=== PATIENT | female | born 1985 | race Two or more races ===

== ENCOUNTER 2019-11-19 19:24 | Emergency (ER) | payer OTHER ==
--- NOTE | 2019-11-19 20:27 | ER Document Report ---
ED Medical Screen (RME) - General Chief Complaint: Vaginal Pain Stated Complaint: LOW ABDOMINAL PAIN Time Seen by Provider: 11/19/19 20:21 Mode of Arrival: Ambulatory Information source: Patient Notes: 32-year-old female presents to ED for complaint of vaginal and pelvic pain. She states she had a tele-visit for a bacterial vaginal infection a couple weeks ago. She is states that the tele-doctor ordered her some Flagyl. He stated that she should have a follow-up visit after the menstrual cycle was over. She states after the menstrual cycle was over she had another visit he ordered her some more Flagyl. She states she is continuing to have symptoms and she is now come to the emergency room for the continued pain to the pelvis and vaginal area. I have greeted and performed a rapid initial assessment of this patient. A comprehensive ED assessment and evaluation of the patient, analysis of test results and completion of medical decision making process will be conducted by an additional ED providers. - Related Data Allergies/Adverse Reactions: No Known Allergies Allergy (Verified 11/19/19 20:15) Physical Exam - Vital signs Vitals: Temp Pulse Resp BP Pulse Ox 99.4 F 111 H 18 143/77 H 99 11/19/19 19:27 11/19/19 19:27 11/19/19 19:27 11/19/19 19:27 11/19/19 19:27 Course - Vital Signs Vital signs: Temp Pulse Resp BP Pulse Ox 99.4 F 111 H 18 143/77 H 99 11/19/19 19:27 11/19/19 19:27 11/19/19 19:27 11/19/19 19:27 11/19/19 19:27
[2019-11-19 20:35] LABS: APPEARANCE,URINE CLEAR; BILIRUBIN,URINE NEGATIVE (NEGATIVE); COLOR,URINE YELLOW; GLUCOSE, URINE NEGATIVE (NEGATIVE); KETONES,URINE NEGATIVE (NEGATIVE); LEUKOCYTE ESTERASE,URINE NEGATIVE (NEGATIVE); NITRITE,URINE NEGATIVE (NEGATIVE); PROTEIN,URINE NEGATIVE (NEGATIVE); URINE SPECIFIC GRAVITY 1.006; UROBILINOGEN,URINE NEGATIVE mg/dL (<2.0)
--- NOTE | 2019-11-19 21:11 | RADIOLOGY REPORT (SQ) ---
US PELVIS HISTORY: Pelvic pain. COMPARISON: None. TECHNIQUE: Grayscale, color Doppler, and spectral Doppler ultrasound images of the pelvis were obtained. FINDINGS: The uterus is anteverted and measures 7.7 x 3.8 x 5.3 cm. The endometrium is 1.1 cm in thickness. The cervix is 2 cm in length. No intrauterine fibroids are seen. The right ovary measures 3.3 x 2.8 cm and contains normal color Doppler blood flow. The left ovary was not seen due to overlying bowel gas. No pelvic free fluid is evident. IMPRESSION: No acute pelvic findings.
[2019-11-19 21:22] LABS: ABSOLUTE EOSINOPHILS # (AUTO) 0.1 10^3/uL (0.0-0.6); ABSOLUTE LYMPHOCYTES (AUTO) 1.8 10^3/uL (0.5-4.7); ABSOLUTE MONOCYTES (AUTO) 0.6 10^3/uL (0.1-1.4); ABSOLUTE NEUT (AUTO) 6.7 10^3/uL (1.7-8.2); BASOPHILS % (AUTO) 0.3 % (0-2); EOSINOPHILS % (AUTO) 0.9 % (0-6); HEMATOCRIT 37.5 % (36.0-47.0); HEMOGLOBIN 13.3 g/dL (12.0-15.5); LYMPHOCYTES % (AUTO) 19.7 % (13-45); MEAN CORPUSCULAR HEMOGLOBIN 32.3 pg (27.0-33.4); MEAN CORPUSCULAR HGB CONC 35.5 g/dL (32.0-36.0); MEAN CORPUSCULAR VOLUME 91 fl (80-97); MONOCYTES % (AUTO) 6.6 % (3-13); PLATELET COUNT 231 10^3/uL (150-450); RED BLOOD COUNT 4.12 10^6/uL (3.72-5.28); RED CELL DISTRIBUTION WIDTH 12.4 % (11.5-14.0); SEGMENTED NEUTROPHILS % (AUTO) 72.5 % (42-78); TOTAL CELLS COUNTED % (AUTO) 100 %; WHITE BLOOD COUNT 9.2 10^3/uL (4.0-10.5)
[2019-11-19 21:41] LABS: ALBUMIN 4.4 g/dL (3.5-5.0); ALKALINE PHOSPHATASE 48 U/L (38-126); ANION GAP 8 (5-19); ASPARTATE AMINO TRANSFERASE 20 U/L (14-36); BILIRUBIN,DIRECT 0.2 mg/dL (0.0-0.4); BILIRUBIN,TOTAL 0.3 mg/dL (0.2-1.3); BLOOD UREA NITROGEN 11 mg/dL (7-20); CALCIUM 9.4 mg/dL (8.4-10.2); CARBON DIOXIDE 30 mmol/L (22-30); CHLORIDE 101 mmol/L (98-107); GLUCOSE 98 mg/dL (75-110); POTASSIUM 3.9 mmol/L (3.6-5.0); TOTAL PROTEIN 7.2 g/dL (6.3-8.2)
--- NOTE | 2019-11-19 21:59 | ER Document Report ---
ED GI/ - General Chief Complaint: Vaginal Pain Stated Complaint: LOW ABDOMINAL PAIN Time Seen by Provider: 11/19/19 20:21 Mode of Arrival: Ambulatory Notes: 11/19/19 19:58 - ED Nursing Note by NEVIN MCKEON Acchuan Num: [id number] : 1985 Patient Age: 33 ten days of vaginal pain and burning. pt has been on 2 courses of flagyl . pt states she still has symptoms. pt denies discharge or itching. Initialized on 11/19/19 19:58 - END OF NOTE - Related Data Allergies/Adverse Reactions: No Known Allergies Allergy (Verified 11/19/19 20:15) Past Medical History - General Information source: Patient - Social History Smoking Status: Never Smoker Physical Exam - Vital signs Vitals: Temp Pulse Resp BP Pulse Ox 99.4 F 111 H 18 143/77 H 99 11/19/19 19:27 11/19/19 19:27 11/19/19 19:27 11/19/19 19:27 11/19/19 19:27 Course - Vital Signs Vital signs: Temp Pulse Resp BP Pulse Ox 99.4 F 111 H 18 143/77 H 99 11/19/19 19:27 11/19/19 19:27 11/19/19 19:27 11/19/19 19:27 11/19/19 19:27 - Laboratory Result Diagrams: 11/19/19 21:00 11/19/19 21:00
--- NOTE | 2019-11-19 22:12 | ER Document Report ---
ED GI/ - General Chief Complaint: Vaginal Pain Stated Complaint: LOW ABDOMINAL PAIN Time Seen by Provider: 11/19/19 20:21 Mode of Arrival: Ambulatory - [facility] Notes: 11/19/19 22:27 33-year-old female presents with vaginal pain. Patient states that about 10 days ago she had symptoms suggestive of BV, she had a telemedicine visit and was prescribed Flagyl. She was additionally on her menstrual cycle at that time. After her menstrual cycle was finished, she went into the doctor and had a swab done which showed "infection", she was then started on a second course of Flagyl. She states that she does not think the Flagyl is working, she currently is taking pills. She states that the odor has not changed. She has a little bit of discomfort in her pelvic area. She also states that she feels a burning on the outside of her vagina. She denies discharge or bleeding. - Related Data Allergies/Adverse Reactions: No Known Allergies Allergy (Verified 11/19/19 20:15) Past Medical History - General Information source: Patient - Social History Smoking Status: Never Smoker Family History: Reviewed & Not Pertinent Review of Systems - Review of Systems Constitutional: denies: Fever EENT: No symptoms reported Cardiovascular: No symptoms reported Respiratory: No symptoms reported Gastrointestinal: denies: Abdominal pain, Diarrhea, Nausea, Vomiting Genitourinary: Burning Female Genitourinary: Vaginal odor Musculoskeletal: No symptoms reported Skin: No symptoms reported Neurological/Psychological: No symptoms reported Physical Exam - Vital signs Vitals: Temp Pulse Resp BP Pulse Ox 99.4 F 111 H 18 143/77 H 99 11/19/19 19:27 11/19/19 19:27 11/19/19 19:27 11/19/19 19:27 11/19/19 19:27 - General General appearance: Appears well In distress: None - HEENT Head: Normocephalic, Atraumatic Extraocular movements intact: Yes Pupils: PERRL - Respiratory Breath sounds: Normal - Cardiovascular Rhythm: Regular - Abdominal Tenderness: Nontender - Genitourinary External exam: No: Lesions Speculum exam: Vaginal discharge, Other - No cervical irritation Vaginal bleeding: Mild Bimanuel exam: No: Cervical motion tender, Bladder/Urethral tender, Adnexal tenderness Notes: Nursing real estate salesperson present - Extremities General upper extremity: Normal ROM General lower extremity: Normal ROM - Neurological Neuro grossly intact: Yes Cognition: Normal Orientation: AAOx4 - Psychological Associated symptoms: Normal affect - Skin Skin Temperature: Warm Course - Re-evaluation Re-evalutation: 11/19/19 22:29 33-year-old female here with vaginal odor and discomfort. Reportedly was diagnosed with BV via telemedicine visit, she is now on her second course of Flagyl without improvement of her symptoms. Additionally complains of some burning to her urethra per her description. Will perform pelvic exam. She is well-appearing, nontoxic, no abdominal tenderness found. Via the triage process she had a pelvic ultrasound done, which is negative for acute finding. 11/19/19 22:44 Pelvic exam performed, there is some vaginal discharge. No CMT or adnexal tenderness. Patient wants to wait in the emergency department for swabs. 11/20/19 01:08 Urine without evidence of UTI. negative. No trichomonas or yeast seen. She does have 3+ bacteria and white, feel this is consistent with BV. Negative gonorrhea and chlamydia. 11/20/19 01:14 Patient was updated on results. She was advised to discontinue use of oral Flagyl and instead begin use of metronidazole gel. She already has a prescription for this. She verbalized understanding of how to use it. Return precautions given, stable at time of discharge. - Vital Signs Vital signs: Temp Pulse Resp BP Pulse Ox 99.4 F 111 H 18 143/77 H 99 11/19/19 19:27 11/19/19 19:27 11/19/19 19:27 11/19/19 19:27 11/19/19 19:27 - Laboratory Result Diagrams: 11/19/19 21:00 11/19/19 21:00 Discharge - Discharge Clinical Impression: Vaginal discharge Condition: Stable Disposition: HOME, SELF-CARE Additional Instructions: Discontinue use of the pill form of Flagyl. Please begin use of the metronidazole gel as previously prescribed by your doctor. Return to the emergency department for any concerning worsening symptoms.
[2019-11-19 22:59] LABS: BACTERIA (WET MOUNT) 3+ BACTERIA SEEN; RBCS (WET MOUNT) NO RBCS SEEN; T.VAGINALIS (WET MOUNT) NO TRICHOMONAS SEEN; WBCS (WET MOUNT) 4+ WBCS SEEN; YEAST (WET MOUNT) NO YEAST SEEN
[2019-11-20 00:26] LABS: CHLAM PCR NOT DETECTED (NOT DETECT)
[2019-11-20 02:03] VITALS: BP 116/82
== END 2019-11-20 01:29 | disposition home or self-care (01) ==
LOC: ER 19:24
DX: N89.8 Other specified noninflammatory disorders of vagina (principal); R10.2 Pelvic and perineal pain; R10.30 Lower abdominal pain, unspecified
CPT/HCPCS: 36415; 76856; 80053; 81001; 81025; 85025; 87070; 87205; 87210; 87491; 87591; 99284

== ENCOUNTER 2020-03-31 21:10 | Emergency (ER) | payer OTHER ==
[2020-03-31] MEDS ORDERED: LORAZEPAM 1 MG TABLET PO ONE (21:26)
--- NOTE | 2020-03-31 21:27 | ER Document Report ---
ED Medical Screen (RME) - General Chief Complaint: Arrhythmia Stated Complaint: CHEST PAIN,ANXIETY Time Seen by Provider: 03/31/20 21:25 Notes: HPI: 34-year-old female who tested Covid positive presenting for chest pain and a sensation of heaviness over the anterior chest all day today with some shortness of breath. No pleuritic pain. Patient feels like her heartbeat is very quick today. Patient got the Covid test on because her had tested positive for Covid. No definite fevers. PHYSICAL EXAMINATION: Patient is mildly tachycardic. She does not become dyspneic with speaking. I have greeted and performed a rapid initial assessment of this patient. A comprehensive ED assessment and evaluation of the patient, analysis of test results and completion of medical decision making process will be conducted by an additional ED providers. Please note that clinical decision making for this patient was made during the 2019 pandemic of novel coronavirus which caused a significant strain on the healthcare system including at this particular facility. Criteria for admission discharge and level of care decisions as well as treatment decisions have necessarily changed - Related Data Allergies/Adverse Reactions: No Known Allergies Allergy (Verified 03/31/20 21:22) Physical Exam - Vital signs Vitals: Temp Pulse Resp BP Pulse Ox 98.3 F 119 H 18 140/75 H 98 03/31/20 21:13 03/31/20 21:13 03/31/20 21:13 03/31/20 21:13 03/31/20 21:13 Course - Vital Signs Vital signs: Temp Pulse Resp BP Pulse Ox 98.3 F 119 H 18 140/75 H 98 03/31/20 21:13 03/31/20 21:13 03/31/20 21:13 03/31/20 21:13 03/31/20 21:13
--- NOTE | 2020-03-31 22:12 | RADIOLOGY REPORT (SQ) ---
EXAM DESCRIPTION: XR CHEST 1 VIEW COMPLETED DATE/TME: 03/31/2020 21:48 CLINICAL HISTORY: 34 years, Female, chest pain COMPARISON: None. NUMBER OF VIEWS: 1 TECHNIQUE: Single frontal view of the chest was obtained at 9:49 PM. LIMITATIONS: None. FINDINGS: The heart size is normal. Lungs are clear. There is no evidence of pleural effusion or pneumothorax. No definite bony abnormality. IMPRESSION: No acute abnormality as above. copyright 2010 [employer]- All Rights Reserved
--- NOTE | 2020-03-31 22:25 | ER Document Report ---
Doctor's Note Notes: 03/31/20 22:24 I reviewed this patient's chart and ordered labs to expedite care, patient waiting for treating provider evaluation.
--- NOTE | 2020-03-31 22:41 | ER Document Report ---
ED General - General Chief Complaint: Chest Pain Stated Complaint: CHEST PAIN,ANXIETY Time Seen by Provider: 03/31/20 21:25 Notes: 34-year-old female no significant past medical history presents with feeling of heart racing and diffuse chest discomfort for the past approximately 1 day. Patient diagnosed with Covid after her had positive test that she had positive test on . Patient has been having some mild malaise but robert elliott feels well. Says that this morning she felt that her heartbeat was fast and it made her anxious and she developed diffuse chest discomfort that improved after Ativan given when she arrived. Patient denies any exertional chest pain, cardiac history, hypertension, hyperlipidemia, diabetes, smoking, asthma history, lower extremity edema, recent travel/trauma/surgery/immobilization, DVT/PE history of self or family, exogenous estrogen use, recent pregnancies, cough/hemoptysis. Patient has been eating and drinking well has been urinating at baseline. Patient denies any abdominal pain, vomiting, diarrhea, black or bloody stool, dizziness, syncope. - Related Data Allergies/Adverse Reactions: No Known Allergies Allergy (Verified 03/31/20 21:22) Past Medical History - General Information source: Patient - Social History Smoking Status: Never Smoker Frequency of alcohol use: None Drug Abuse: None Family History: Reviewed & Not Pertinent Review of Systems - Review of Systems Notes: REVIEW OF SYSTEMS: CONSTITUTIONAL : Denies fever, chills, or sweats. EENT: Denies recent sinus symptoms, denies throat pain CARDIOVASCULAR: + chest pain, -MILAGROS RESPIRATORY: + cough, denies shortness of breath. GASTROINTESTINAL: Denies abdominal pain, nausea/vomiting. GENITOURINARY: Denies difficulty urinating, painful urination. MUSCULOSKELETAL: Denies neck pain, back pain. SKIN: Denies rash or skin lesions. HEMATOLOGIC : Denies easy bruising or bleeding. LYMPHATIC: Denies swollen, enlarged glands. NEUROLOGICAL: Denies headache, denies change in gait. PSYCHIATRIC: + anxiety or stress -depression. Physical Exam - Vital signs Vitals: Temp Pulse Resp BP Pulse Ox 98.3 F 119 H 18 140/75 H 98 03/31/20 21:13 03/31/20 21:13 03/31/20 21:13 03/31/20 21:13 03/31/20 21:13 - Notes Notes: PHYSICAL EXAMINATION: GENERAL: Well-appearing, well-nourished and in no acute distress. HEAD: Atraumatic, normocephalic. EYES: Pupils equal round and appropriate constriction, sclera anicteric, conjunctiva are normal. ENT: nares patent, dry mucous membranes. NECK: Normal range of motion, supple without lymphadenopathy LUNGS: Breath sounds clear to auscultation bilaterally and equal. No wheezes rales or rhonchi. Normal respiratory rate and effort HEART: Mildly tachycardic, regular rhythm, no murmurs rubs or gallops ABDOMEN: Soft, nontender, no guarding, no masses, no CVAT EXTREMITIES: Normal range of motion, no pitting or edema. No cyanosis. NEUROLOGICAL: Awake, alert, conversing appropriately, moves all extremities spontaneously. PSYCH: Normal mood, normal affect. SKIN: Warm, Dry, normal turgor, no rashes or lesions noted. Course - Re-evaluation Re-evalutation: 03/31/20 22:58 Patient with tachycardia and chest pain in setting of COVID-19 infection. Patient appears mildly dehydrated on exam likely due to insensible losses from active infection. Patient otherwise feels well, has been tolerating p.o., no risk factors for severe course. Will obtain EKG, troponin, D-dimer, chest x- ray, give IV fluids, check electrolytes and CBC, and reassess. Rule out Covid related cardiomyopathy, PE. Sufficient to rule out PE with D-dimer in this patient who has otherwise no risk factors for PE and single troponin appropriate for ACS/myocarditis given that patient has had a day of constant symptoms preceding arrival to ED. 04/01/20 01:37 Patient's D-dimer was in normal range however given that this lab has not had any testing to validate normal ranges in our patient population and warning is given that D-dimer cannot be used for rule out I obtained a CTA chest which did not show any PE. Patient's heart rate has improved with fluids, CTA that showed bilateral pneumonia consistent with Covid pneumonia, will give additional liter of fluids and discharge with supportive care PCP follow-up. Gave patient extensive return to ED precautions which she demonstrated understanding of. Patient heart rate normalizes when she is calm and this becomes mildly tachycardic when you talk to her and she begins to feel anxious. Patient ready for discharge. - Vital Signs Vital signs: Temp Pulse Resp BP Pulse Ox 98.7 F 105 H 13 127/92 H 99 04/01/20 03:30 04/01/20 03:30 04/01/20 03:30 04/01/20 03:30 04/01/20 03:30 - Laboratory Results Result Diagrams: 03/31/20 23:05 03/31/20 23:05 Laboratory Results Interpreted: 03/31/20 23:05 Sodium 135.5 L Creatinine 0.44 L Critical Laboratory Results Reviewed: No Critical Results - Radiology Results Critical Radiology Results Reviewed: No Critical Results - EKG Interpretation by Me Additional EKG results interpreted by me: 03/31/20 22:41 Sinus tachycardia, no significant ST elevations or depressions, no significant T wave abnormalities, QTc 421 Discharge - Discharge Clinical Impression: Pneumonia due to COVID-19 virus, Dehydration Chest pain Qualifiers: Chest pain type: unspecified Qualified Code(s): R07.9 - Chest pain, unspecified Disposition: HOME, SELF-CARE Additional Instructions: Patient was provided with discharge information including: As a person under investigation for Covid 19, the [place] department of Health and Human Services, division of public health advises you to adhere to the following guidance until your test results are reported to you. If your test result is positive, you will receive additional information from your provider and your local health department at that time. Remain at home until you are cleared by the health provider or public health authorities. Keep a log of visitors to your home, notify any visitors to your home of your isolation status. If you plan to move to a new address or leave the [facility], notify the local health department in your [facility]. Call your doctor or seek care if you have an urgent medical need. Before seeking medical care, call ahead to get instructions from the provider before ar riving at the medical office clinic or hospital. Notify them that you are being tested for the virus that causes Covid 19 so that arrangements can be made, as necessary, to prevent transmission to others in the healthcare setting. Next, notify the local health department in your county. If a medical emergency arises and you need to call 911, inform the first responders that you are being tested for the virus that causes Covid 19. Next, notify the local health department in your county. You have COVID-19 pneumonia. Check your pulse oximetry several times a day, but is below 92% at rest, or you have worsening shortness of breath, worsening chest pain, dizziness, weakness, fainting, confusion, skin changes, uncontrolled vomiting, diarrhea, or any other worsening or alarming symptoms return to the emergency department immediately. Follow-up with your primary doctor remotely within 3 days. You have any abdominal pain taking aspirin stop taking immediately. If you have any continued abdominal pain or black or bloody stools or vomit return to emergency department immediately. Prescriptions: Aspirin [Aspirin 325 mg Tablet] 325 mg PO DAILY 7 Days #7 pkg Ivermectin [Stromectol 3 mg Tablet] 12 mg PO QAM 2 Days #8 tablet Ascorbic Acid [Vitamin C] 2,000 mg PO BID 7 Days #28 tablet Cholecalciferol (Vitamin D3) [Vitamin D3 3000 unit Tablet] 3,000 unit PO QAM 7 Days #7 tablet Zinc [Zinc Chelated] 100 mg PO QAM 7 Days #14 tablet
[2020-03-31] MEDS ORDERED: NORMAL SALINE 1000 ML 1,000 ML IV ONE (22:44)
[2020-03-31 23:45] LABS: ABSOLUTE LYMPHOCYTES (AUTO) 1.3 10^3/uL (0.5-4.7); ABSOLUTE MONOCYTES (AUTO) 0.4 10^3/uL (0.1-1.4); ABSOLUTE NEUT (AUTO) 2.4 10^3/uL (1.7-8.2); BASOPHILS % (AUTO) 0.5 % (0-2); EOSINOPHILS % (AUTO) 0.1 % (0-6); HEMATOCRIT 38.7 % (36.0-47.0); HEMOGLOBIN 13.5 g/dL (12.0-15.5); LYMPHOCYTES % (AUTO) 30.8 % (13-45); MEAN CORPUSCULAR HGB CONC 34.9 g/dL (32.0-36.0); MEAN CORPUSCULAR VOLUME 89 fl (80-97); MONOCYTES % (AUTO) 10.7 % (3-13); PLATELET COUNT 178 10^3/uL (150-450); RED BLOOD COUNT 4.36 10^6/uL (3.72-5.28); RED CELL DISTRIBUTION WIDTH 12.6 % (11.5-14.0); SEGMENTED NEUTROPHILS % (AUTO) 57.9 % (42-78); TOTAL CELLS COUNTED % (AUTO) 100 %; WHITE BLOOD COUNT 4.1 10^3/uL (4.0-10.5)
[2020-03-31 23:50] LABS: INTERNATIONAL RATION (INR) 0.99; PROTHROMBIN TIME 13.3 SEC (11.4-15.4)
[2020-03-31 23:52] LABS: D-DIMER 0.49 ug/mL (0.00-0.50)
[2020-04-01 00:06] LABS: ALBUMIN 4.7 g/dL (3.5-5.0); ALKALINE PHOSPHATASE 63 U/L (38-126); ANION GAP 6 (5-19); ASPARTATE AMINO TRANSFERASE 30 U/L (14-36); BILIRUBIN,DIRECT 0.2 mg/dL (0.0-0.4); BILIRUBIN,TOTAL 0.4 mg/dL (0.2-1.3); BLOOD UREA NITROGEN 8 mg/dL (7-20); CALCIUM 9.1 mg/dL (8.4-10.2); CARBON DIOXIDE 29 mmol/L (22-30); CHLORIDE 101 mmol/L (98-107); GLUCOSE 87 mg/dL (75-110); POTASSIUM 3.8 mmol/L (3.6-5.0)
--- NOTE | 2020-04-01 01:29 | RADIOLOGY REPORT (SQ) ---
EXAM DESCRIPTION: CT CHEST ANGIOGRAPHY WITH IV CONTRAST COMPLETED DATE/TME: 04/01/2020 01:21 CLINICAL HISTORY: 34 years, Female, COVID tachy, CP HX PANIC ATTACKS REPORTS "PAIN IS SIMILAR TO THAT" r/o PE COMPARISON: None. TECHNIQUE: [id number] Images stored on PACS. All CT scanners at this facility use dose modulation, iterative reconstruction, and/or weight based dosing when appropriate to reduce radiation dose to as low as reasonably achievable (ALARA). Axial CTA images with coronal and sagittal MIPS [facility]: Dose Right [facility]: CareDose [facility]: Dose Right [facility]: Teradose 4D [facility]: [employer] LIMITATIONS: None. FINDINGS: The mediastinal vasculature enhances normally. No filling defect to suggest pulmonary embolus. Negative for thoracic aortic aneurysm or dissection. Limited evaluation of the upper abdomen is unremarkable. Osseous structures are grossly intact. No pneumothorax. Patchy groundglass opacities in the lung bases bilaterally consistent with multifocal pneumonitis. No effusion IMPRESSION: Negative for pulmonary embolus. Multifocal pneumonitis. TECHNICAL DOCUMENTATION: Quality ID # [id number]: Final reports with documentation of one or more dose reduction techniques (e.g., Automated exposure control, adjustment of the mA and/or kV according to patient size, use of iterative reconstruction technique) copyright 2011 [employer]- All Rights Reserved
[2020-04-01] MEDS ORDERED: NORMAL SALINE 1000 ML 1,000 ML IV ONE (01:36)
[2020-04-01 03:32] VITALS: BP 127/92
--- NOTE | 2020-04-01 07:45 | EKG REPORT ---
SEVERITY:- BORDERLINE ECG - SINUS TACHYCARDIA MILD NONSPECIFIC ANTERIOR ST-T CHANGES, NO OLD EKG FOR COMPARISON : Confirmed by: Alfred Solorio MD 01-Apr-2020 07:44:42
== END 2020-04-01 03:32 | disposition home or self-care (01) ==
LOC: ER 21:10
DX: U07.1 COVID-19 (principal); J12.82 Pneumonia due to coronavirus disease 2019; E86.0 Dehydration; R06.02 Shortness of breath; R07.9 Chest pain, unspecified
CPT/HCPCS: 99285; 96360; 96361; 36415; 84443; 84703; 85025; 85610; 80053; 84484; 85379; 71045; 71275; 93005; 93010; J7030 ×2